=== PATIENT | male | born 1955 | race Caucasian/White ===

== ENCOUNTER 2017-05-09 10:11 | Emergency (ER) | payer OTHER ==
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
[2017-05-09 12:40] VITALS: BP 125/67
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
== END 2017-05-09 12:59 | disposition home or self-care (01) ==
LOC: UCEAST 10:11
DX: S42.001A Fracture of unspecified part of right clavicle, initial encounter for closed fracture (principal); S40.211A Abrasion of right shoulder, initial encounter; S80.211A Abrasion, right knee, initial encounter; V18.0XXA Pedal cycle driver injured in noncollision transport accident in nontraffic accident, initial encounter; Y93.55 Activity, bike riding; Y92.9 Unspecified place or not applicable
CPT/HCPCS: 99212; G0463

== ENCOUNTER 2017-05-25 10:13 | Day surgery (SDC) | payer OTHER ==
[~2017-05-25 10:13] MED LIST: Buffered Lidocaine 0.9% SYRIN* 5 ML/SYR SYRINGE INTRADERM ONE; Buffered Lidocaine 0.9% SYRIN* 5 ML/SYR SYRINGE ONE; Ibuprofen TAB* 400 MG ONE; Ibuprofen TAB* 400 MG PO ONE; Metoclopramide TAB* 10 MG ONE; Metoclopramide TAB* 10 MG PO ONE; Sodium Citrate/Citric Acid* 15 ML UDC ONE; Sodium Citrate/Citric Acid* 15 ML UDC PO ONE; ceFAZolin 2 GM PREMIX (*) 50 ML IVPB ONE
[2017-05-25] MEDS ORDERED: Lidocaine 1.5% EPI 1:200,000* 30 ML SDV ONE (11:35)
[2017-05-25] MEDS ORDERED: fentaNYL* 50 MCG/ML 2 ML VIAL (100 MCG VIAL) ONE ×2 (11:37→15:16)
[2017-05-25] MEDS ORDERED: Atracurium* 10 MG/ML 10 ML VIAL ONE (11:38)
[2017-05-25] MEDS ORDERED: Lidocaine 2% PF * 5 ML VIAL ONE (12:25)
[2017-05-25] MEDS ORDERED: Dexamethasone IV* 4 MG/ML 1 ML (4 MG) ONE (12:25)
[2017-05-25] MEDS ORDERED: Propofol* 10 MG/ML 20 ML BTL IV PUSH ONE (12:25)
[2017-05-25] MEDS ORDERED: oxyCODONE TAB* 5 MG TAB PO PRN (12:50)
[2017-05-25] MEDS ORDERED: fentaNYL* 50 MCG/ML 2 ML VIAL (100 MCG VIAL) IV PRN (12:50)
[2017-05-25] MEDS ORDERED: DiMENhydriNATE IV* 50 MG/ML VIAL IV PUSH PRN (12:50)
--- NOTE | 2017-05-25 15:16 | RAD ---
INDICATION: Clavicular fracture-ORIF COMPARISON: May 21, 2017 FINDINGS: 23.6 seconds of fluoroscopy were provided for the orthopedics department. Fluoroscopic spot imaging of the right clavicle] were obtained for operative control and show ORIF of the clavicular fracture with placement of a cortical plate and screws . CPT II Codes: 6045F (fluoro time doc)
[2017-05-25] MEDS ORDERED: oxyCODONE TAB* 5 MG TAB ONE (15:41)
[2017-05-25 16:23] VITALS: BP 101/67
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
== END 2017-05-25 16:51 | disposition home or self-care (01) ==
LOC: OR 10:13
PROVIDERS: ATTEND Orthopaedic Surgery
DX: S42.021A Displaced fracture of shaft of right clavicle, initial encounter for closed fracture (principal); R00.1 Bradycardia, unspecified; V18.4XXA Pedal cycle driver injured in noncollision transport accident in traffic accident, initial encounter; Y92.9 Unspecified place or not applicable
CPT/HCPCS: A9270-GY; C1713; C1776; J0690; J1100; J2704; J3010

== ENCOUNTER 2024-04-02 16:37 | Observation (INO) ==
[2024-04-02] MEDS: Ondansetron 4 mg VIAL 2 MG/ML 2 ml VIAL IV ONE ×2 (17:15→19:57)
[2024-04-02] MEDS: Lactated Ringers 1000 ml BAG 1,000 ML IV ONE (17:15)
[2024-04-02] MEDS: Morphine 4 MG/ML VIAL (1 ml) IV ONE (17:15)
[2024-04-02 17:19] LABS: ABS Basophils 0.1 10^3/uL (0.0-0.1); ABS Lymphocytes 0.7 10^3/uL (1.0-4.8); ABS Monocytes 0.4 10^3/uL (0.0-1.1); ABS Neutrophils 7.3 10^3/uL (1.5-7.6); Eosinophil % 0.2 %; Hematocrit 39.8 % (38-53); Hemoglobin 14.1 g/dL (13.2-16.3); Lymphocyte % 8.2 %; Mean Corpuscular Hemoglobin 32.3 pg (27-33); Mean Corpuscular Hgb Conc 35.5 g/dL (31-36); Mean Corpuscular Volume 91.1 fL (80-97); Mean Platelet Volume 7.9 fL (7.5-11.2); Platelet Count 226 10^3/uL (150-450); Red Blood Count 4.37 10^6/uL (4.06-5.63); Red Cell Distribution Width 13.1 % (12-17); White Blood Count 8.4 10^3/uL (3.6-10.2)
[2024-04-02 17:48] LABS: ALT 21 U/L (7-52); AST 31 U/L (13-39); Albumin 5.1 g/dL (3.2-5.2); Albumin/Globulin Ratio 2.3 (1-3); Alkaline Phosphatase 61 U/L (35-149); Anion Gap 16 mmol/L (2-16); Blood Urea Nitrogen 34 mg/dL (6-24); C Reactive Protein < 1.00 mg/L (<8.01); CO2 Carbon Dioxide 23 mmol/L (22-32); Calcium 10.5 mg/dL (8.6-10.3); Chloride 98 mmol/L (101-111); Creatinine, Serum 1.08 mg/dL (0.67-1.17); Globulin 2.2 g/dL (2-4); Glucose 216 mg/dL (70-100); Lipase 32 U/L (11.0-82.0); Sodium 137 mmol/L (135-145); Total Bilirubin 0.9 mg/dL (0.2-1.0); Total Protein 7.3 g/dL (6.4-8.9); eGFR CKD-EPI 74.3 (>60)
[2024-04-02] MEDS: HYDROmorphone 1 MG/1 ML SYRINGE IV ONE (18:35)
[2024-04-02] MEDS: Iohexol 300 (CONTRAST) 10 ML SDV IV ONE (18:36)
[2024-04-02] MEDS: Piperacillin/Tazobac 3.375 BAG 3.375 GM/100 ML BAG IV ONE (18:47)
[2024-04-02] MEDS: Lactated Ringers SEPSIS* BAG 1,910 ML IV ONE (18:47)
[2024-04-02 19:15] LABS: INR 1.03 (0.83-1.13)
[2024-04-02] MEDS: Prochlorperazine 5 mg/ml 2 ml VIAL (10 mg) IV ONE (20:33)
[2024-04-02 20:40] LABS: Urine Appearance Clear; Urine Bilirubin Negative (Negative); Urine Blood Negative (Negative); Urine Color Colorless; Urine Glucose 1+ (>=70 mg/dL) (Negative); Urine Ketones 2+ (Negative); Urine Nitrite Negative (Negative); Urine Protein Negative (Negative); Urine Specific Gravity 1.029 (1.002-1.030); Urine Urobilinogen Negative (Negative)
[2024-04-02] MEDS ORDERED: Ondansetron 4 mg VIAL 2 MG/ML 2 ml VIAL IV PRN (21:03)
[2024-04-02 21:10] LABS: High Sensitivity Troponin 1 Hr 4 pg/mL (<20)
[2024-04-02] MEDS: Iohexol 350 (CONTRAST) 500 ML MDV IV ONE (21:55)
[2024-04-02] MEDS ORDERED: Lactated Ringers 1000 ml BAG 1,000 ML IV SCH (22:00)
[2024-04-02] MEDS: Lactated Ringers 1000 ml BAG 1,000 ML IV SCH (22:11)
[2024-04-02] MEDS: Metoclopramide 5 MG/ML VIAL (10 mg) IV ONE (22:12)
[2024-04-02] MEDS: HYDROmorphone 1 MG/1 ML SYRINGE IV SLOW PU PRN (22:24)
[2024-04-03] MEDS ORDERED: Rocuronium 50 mg VIAL 10 mg/ml 5 ml VIAL (50 mg) ONE ×2 (00:12→01:39)
[2024-04-03] MEDS ORDERED: Glycopyrrolate IV 0.2 MG/ML 1 ML VIAL ONE (00:12)
[2024-04-03] MEDS ORDERED: Lidocaine 2% PF 5 ML VIAL ONE (00:12)
[2024-04-03] MEDS ORDERED: Midazolam 2 mg/2 ml VIAL 1 mg/ml 2 ml VIAL (2 mg) ONE (00:12)
[2024-04-03] MEDS ORDERED: fentaNYL 250 mcg/5 ml 50 MCG/ML 5 ml VIAL (250 MCG) ONE (00:12)
[2024-04-03] MEDS ORDERED: Propofol 10 MG/ML 20 ML BTL ONE (00:12)
[2024-04-03] MEDS ORDERED: Bupivacaine 0.25% EPI 200,000 30 ML SDV ONE (00:21)
[2024-04-03] MEDS ORDERED: Dexamethasone IV 4 MG/ML VIAL 1 ml VIAL ONE (01:25)
[2024-04-03] MEDS ORDERED: Piperacillin/Tazobac 3.375 BAG 3.375 GM/100 ML BAG IV SCH (02:00)
[2024-04-03] MEDS ORDERED: fentaNYL 100 mcg/2 ml 50 MCG/ML VIAL IV PRN (02:10)
[2024-04-03] MEDS ORDERED: Naloxone 0.4 mg VIAL 0.4 mg/ml 1 ml VIAL IV PRN (02:10)
[2024-04-03] MEDS: Piperacillin/Tazobac 3.375 BAG 3.375 GM/100 ML BAG IV SCH (04:23)
[2024-04-03 13:49] LABS: ABS Lymphocytes 0.5 10^3/uL (1.0-4.8); ABS Monocytes 0.6 10^3/uL (0.0-1.1); ABS Nucleated RBC 0.01 10^3/ul; Hematocrit 37.1 % (38-53); Hemoglobin 12.8 g/dL (13.2-16.3); Lymphocyte % 4.2 %; Mean Corpuscular Hemoglobin 31.9 pg (27-33); Mean Corpuscular Hgb Conc 34.4 g/dL (31-36); Mean Corpuscular Volume 92.6 fL (80-97); Platelet Count 183 10^3/uL (150-450); Red Blood Count 4.01 10^6/uL (4.06-5.63); Red Cell Distribution Width 13.6 % (12-17); White Blood Count 11.1 10^3/uL (3.6-10.2)
[2024-04-03 17:11] LABS: Calcium 8.9 mg/dL (8.6-10.3); Creatinine, Serum 0.88 mg/dL (0.67-1.17); Potassium 3.7 mmol/L (3.5-5.0); eGFR CKD-EPI 93.1 (>60)
[2024-04-04 06:13] VITALS: BP 96/51
== END 2024-04-04 10:24 | disposition home or self-care (01) ==
LOC: ED 16:37 → EDHOLD 16:37 → SSU 04-03 03:12
PROVIDERS: ADMIT Surgery; ATTEND Surgery